=== PATIENT | male | born 1990 | race Caucasian/White ===

== ENCOUNTER 2016-10-27 09:04 | Emergency (ER) | payer BC ==
[~2016-10-27] VITALS: Wt 63.5 kg
[2016-10-27 10:07] LABS: ADD SCAN DIFF NO
[2016-10-27 10:10] LABS: BASOPHILS % 0.6 % (0.0-2.0); EOSINOPHILS # 0.1 10^3/ul (0.0-0.5); EOSINOPHILS % 1.1 % (0.0-7.0); HEMATOCRIT 43.7 % (42.0-52.0); HEMOGLOBIN 15.1 g/dl (14.0-18.0); LYMPHOCYTES # 0.8 10^3/ul (0.8-2.9); LYMPHOCYTES % 12.9 % (15.0-51.0); MEAN CORPUSCULAR HEMOGLOBIN 30.5 pg (29.0-33.0); MEAN CORPUSCULAR HGB CONC 34.6 g/dl (32.0-37.0); MEAN CORPUSCULAR VOLUME 88.3 fl (82.0-101.0); MEAN PLATELET VOLUME 9.5 fl (7.4-10.4); MONOCYTE # 0.4 10^3/ul (0.3-0.9); MONOCYTES % 6.4 % (0.0-11.0); NEUTROPHIL # 5.1 10^3/ul (1.6-7.5); NEUTROPHILS % 78.8 % (39.0-77.0); PLATELET COUNT 247 10^3/UL (140-415); RED BLOOD COUNT 4.95 10^6/ul (4.70-6.10); WHITE BLOOD COUNT 6.4 10^3/ul (4.8-10.8)
[2016-10-27 10:31] LABS: ALANINE AMINOTRANSFERASE 37 IU/L (13-69); ALKALINE PHOSPHATASE 48 IU/L (42-121); ANION GAP 14 (8-16); ASPARTATE AMINO TRANSFERASE 22 IU/L (15-46); BILIRUBIN,INDIRECT 0.8 mg/dl (0-1.1); BILIRUBIN,TOTAL 0.8 mg/dl (0.2-1.3); BLOOD UREA NITROGEN 16 mg/dl (7-20); CALCIUM 9.5 mg/dl (8.4-10.2); CARBON DIOXIDE 25 mmol/L (21-31); CHLORIDE 108 mmol/L (97-110); GLUCOSE 106 mg/dl (70-220); POTASSIUM 3.9 mmol/L (3.5-5.1); SODIUM 143 mmol/L (135-144)
[2016-10-27 10:43] LABS: ACETAMINOPHEN < 10.0 ug/ml (10.0-30.0); ETHANOL < 10.0 mg/dl; SALICYLATE < 1.0 mg/dl (5.0-30.0)
[2016-10-27] MEDS ORDERED: DIVA125C2 PO (10:52)
[2016-10-27] MEDS ORDERED: BUPR150T6 PO (10:53)
[2016-10-27] MEDS ORDERED: ELVI1TAB3 PO (10:53)
[2016-10-27] MEDS ORDERED: GABA300C16 PO (10:54)
[2016-10-27] MEDS ORDERED: HYDR50CA2 PO (10:54)
--- NOTE | 2016-10-27 11:40 | ERD ---
ER Documentation Chief Complaint Date/Time DATE: 10/27/16 TIME: 921 Chief Complaint NON TRAUMATIC HEADACHE PER MOM. NO NEURO DEFICIT NOTED. ONSET THIS AM HPI 26-year-old male brought to the emergency department by ambulance from home after he used methamphetamine. His main complaint is that he is a nonspecific headache. However, he reports that the headache is not acute in onset, nor thunderclap in nature. Patient reports no numbness, tingling, loss of function. Patient states mainly his issue is that he is depressed and isolated, but not suicidal. He states that when he becomes depressed and isolated, he began using methamphetamine, his last use was approximately 5 days ago. He states that he wants to be "checked out" to see if there is any comp occasions from the methamphetamine. He reports no chest pain, palpitations. He reports not feeling suicidal or homicidal at this time. ROS All systems reviewed and are negative except as per history of present illness. Medications Home Meds Reported Medications Gabapentin* (Gabapentin*) 300 Mg Capsule, 300 MG PO TID, #90 CAP 10/27/16 Hydroxyzine Pamoate* (Hydroxyzine Pamoate*) 50 Mg Capsule, 50 MG PO DAILY Y for ANXIETY, #30 CAP 10/27/16 Bupropion Hcl* (Bupropion XL*) 150 Mg Tab.er.24h, 150 MG PO DAILY, TAB.SA 10/27/16 Elviteg/Ani/Emtric/Tenofo Ala (Genvoya Tablet) 1 Each Tablet, 1 EACH PO DAILY, TAB 10/27/16 Divalproex Sodium* (Divalproex Sodium*) 125 Mg Cap.sprink, 500 MG PO DAILY, # 360 CAP 10/27/16 Allergies Allergies: Coded Allergies: cephalexin (Verified Allergy, Severe, 10/27/16) PMhx/Soc History of Surgery: Yes Anesthesia Reaction: No Hx Neurological Disorder: No Hx Respiratory Disorders: No Hx Cardiac Disorders: No Hx Psychiatric Problems: Yes (Bipolar Disorder, Meth use) Hx Alcohol Use: No Hx Substance Use: Yes Hx Tobacco Use: No Smoking Status: Never smoker FmHx Noncontributory with mom at bedside showing appropriate care. Physical Exam Vitals Vital Signs Date Time Temp Pulse Resp B/P Pulse Ox O2 Delivery O2 Flow Rate FiO2 10/27/16 09:16 98.0 88 21 134/87 98 Physical Exam GENERAL: The patient is well developed and appropriate for usual state of health in no apparent distress HEENT: Pupils equal, round, and reactive to light. EOMI. There is no scleral icterus. Patient has a implantable device in the left parietal scalp without evidence of inflammation NECK: C-spine is soft and supple, there is no meningismus. There is no cervical lymphadenopathy. LUNGS: Clear to auscultation bilaterally. There are no rales, wheezes or rhonchi. HEART: Regular rate and rhythm, no murmurs, clicks, rubs or gallops. ABDOMEN: Soft, non-tender, non-distended. There are bowel sounds in all four quadrants. No rebound or guarding. EXTREMITIES: There is no peripheral cyanosis or edema. No focal swelling or erythema. NEURO: The patient moves all four extremities with 5/5 strength. Cranial nerves II - XII are intact. Normal gait. Alert and oriented. Patient has a stable blindness noted. He has lateral nystagmus noted which is stable. SKIN: There is no apparent rash or petechiae. HEME/LYMPHATIC: There is no evidence of excessive bruising or lymphedema. PSYCHIATRIC: Patient appears somewhat anxious but with a normal mental status. He denies suicidal or homicidal thoughts at this time. He denies auditory or visual hallucinations. Result Diagram: 10/27/16 0955 10/27/16 0955 Results 24 hrs Laboratory Tests Test 10/27/16 09:55 White Blood Count 6.410^3/ul Red Blood Count 4.9510^6/ul Hemoglobin 15.1g/dl Hematocrit 43.7% Mean Corpuscular Volume 88.3fl Mean Corpuscular Hemoglobin 30.5pg Mean Corpuscular Hemoglobin Concent 34.6g/dl Red Cell Distribution Width 13.0% Platelet Count 96084^3/UL Mean Platelet Volume 9.5fl Neutrophils % 78.8% Lymphocytes % 12.9% Monocytes % 6.4% Eosinophils % 1.1% Basophils % 0.6% Nucleated Red Blood Cells % 0.0/100WBC Neutrophils # 5.110^3/ul Lymphocytes # 0.810^3/ul Monocytes # 0.410^3/ul Eosinophils # 0.110^3/ul Basophils # 0.010^3/ul Nucleated Red Blood Cells # 0.010^3/ul Sodium Level 143mmol/L Potassium Level 3.9mmol/L Chloride Level 108mmol/L Carbon Dioxide Level 25mmol/L Anion Gap 14 Blood Urea Nitrogen 16mg/dl Creatinine 0.90mg/dl Glucose Level 106mg/dl Calcium Level 9.5mg/dl Total Bilirubin 0.8mg/dl Direct Bilirubin 0.00mg/dl Indirect Bilirubin 0.8mg/dl Aspartate Amino Transf (AST/SGOT) 22IU/L Alanine Aminotransferase (ALT/SGPT) 37IU/L Alkaline Phosphatase 48IU/L Total Protein 6.0g/dl Albumin 5.0g/dl Globulin 1.00g/dl Albumin/Globulin Ratio 5.00 Salicylates Level < 1.0mg/dl Acetaminophen Level < 10.0ug/ml Ethyl Alcohol Level < 10.0mg/dl Procedures/MDM Patient was taken to a room, seen and evaluated. Comfort measures were initiated. Diagnostic tests were ordered and reviewed. CONSULTATION: donor services team leader saw the patient and mom and provided resources REEVALUATION: Patient remained comfortable and stable in the emergency room MEDICAL DECISION MAKIN-year-old male presents to the emergency department after using methamphetamine. At this time, patient shows no evidence of high risk toxic concerns including no evidence of cardiac or neurologic issues. From a psychiatric standpoint, he clearly has underlying psychiatric disease but is not suicidal or homicidal. Overall, the patient appears to be clinically nontoxic and appropriate for outpatient care. Departure Diagnosis: Primary Impression: Methamphetamine abuse Condition: Stable Patient Instructions: Understanding Methamphetamine Abuse and Addiction Additional Instructions: See your doctor for follow-up as discussed. Take a copy of your test results, if appropriate, to this follow-up visit. See your doctor or return here if your symptoms do not improve as expected. At any time, please return to the emergency department for any change or worsening in her symptoms. BESSIE TELLO Oct 27, 2016 11:40
== END 2016-10-27 11:57 | disposition home or self-care (01) ==
LOC: E/R 09:04
DX: F15.10 Other stimulant abuse, uncomplicated (principal); R40.2252 Coma scale, best verbal response, oriented, at arrival to emergency department; R40.2142 Coma scale, eyes open, spontaneous, at arrival to emergency department; R40.2362 Coma scale, best motor response, obeys commands, at arrival to emergency department
CPT/HCPCS: 36415; 80053; 80306; 85025; 99283